=== PATIENT | female | born 1955 | race Two or more races ===

== ENCOUNTER 2021-07-12 11:35 | Outpatient (CLI) | payer MEDICARE ==
[2021-07-12 23:53] LABS: SARS-CoV-2 PCR by NAA Not Detected (NotDetected)
== END 2021-07-12 11:36 | disposition home or self-care (01) ==
LOC: LABBT 11:35
PROVIDERS: ATTEND Internal Medicine Gastroenterology
DX: C18.9 Malignant neoplasm of colon, unspecified (principal); K63.5 Polyp of colon; Z20.822 Contact with and (suspected) exposure to COVID-19
CPT/HCPCS: U0003; U0005

== ENCOUNTER → 2021-07-17 | Day surgery (SDC) | payer MEDICARE ==
[2021-07-10 14:28] VITALS: BMI 29.7
== END ==
LOC: SDC 06:41
PROVIDERS: ATTEND Internal Medicine Gastroenterology
DX: Z12.11 Encounter for screening for malignant neoplasm of colon (principal); I10 Essential (primary) hypertension; M06.9 Rheumatoid arthritis, unspecified; Z53.9 Procedure and treatment not carried out, unspecified reason; Z85.038 Personal history of other malignant neoplasm of large intestine; Z86.010 Personal history of colon polyps; Z79.899 Other long term (current) drug therapy; Z90.49 Acquired absence of other specified parts of digestive tract

== ENCOUNTER 2021-12-21 13:45 | Inpatient (IN) | payer MEDICARE ==
[2021-12-26] MEDS ORDERED: Acetaminophen 500 MG TAB ONE (10:58)
[2021-12-26] MEDS ORDERED: Ketorolac Tromethamine 30 MG/ML VIAL ONE (10:58)
[2021-12-26] MEDS ORDERED: Scopolamine 1.5 mg/72 hour Patch ONE (10:58)
[2021-12-26] MEDS ORDERED: Bupivacaine HCl 0.5%/Epinephrine 1:200,000/PF 30 ml Vial ONE (11:22)
[2021-12-26] MEDS ORDERED: Meropenem 1 GM in Sodium Chloride 0.9% 100 ML IVPB SCH (11:30)
[2021-12-26] MEDS ORDERED: Meropenem 2 GM in Sodium Chloride 0.9% 100 ML IVPB SCH (11:45)
[2021-12-26] MEDS ORDERED: Lidocaine 1% PF 5 ML VIAL ONE ×2 (12:22→13:05)
[2021-12-26] MEDS ORDERED: Fentanyl 100 MCG/2 ML VIAL ONE (12:22)
[2021-12-26] MEDS ORDERED: Midazolam HCl 2 mg/2 ml Vial ONE (12:22)
[2021-12-26] MEDS ORDERED: Rocuronium Bromide 10 MG/ML (10ML VIAL) ONE (13:05)
[2021-12-26] MEDS ORDERED: Dexamethasone 20 MG/5 ML VIAL ONE (13:05)
[2021-12-26] MEDS ORDERED: Calcium Chloride 1 GM/10 ML Abboject SYRINGE ONE (13:05)
[2021-12-26] MEDS ORDERED: Naloxone HCl 0.4 mg/ml Vial ONE (13:05)
[2021-12-26] MEDS ORDERED: Ondansetron PF 4 MG/2 ML Vial ONE (13:05)
[2021-12-26] MEDS ORDERED: PROPOFOL 200 MG/20 ML VIAL ONE (13:05)
[2021-12-26] MEDS ORDERED: Phenylephrine 10 MG/ML VIAL ONE (13:05)
[2021-12-26] MEDS ORDERED: Labetalol HCl 100 MG/20 ML VIAL ONE (13:05)
[2021-12-26] MEDS ORDERED: ePHEDrine 50 MG/ML VIAL ONE (13:05)
[2021-12-26] MEDS ORDERED: HYDROmorphone 2 MG/ML VIAL ONE (13:06)
[2021-12-26] MEDS ORDERED: SUGAMMADEX SODIUM 200 MG/2 ML VIAL ONE (13:06)
[2021-12-26] MEDS ORDERED: Propofol 500 MG/50 ML VIAL ONE (13:06)
[2021-12-26] MEDS ORDERED: ePHEDrine Sulfate 50 MG/10 ML VIAL ONE (16:13)
[2021-12-26] MEDS ORDERED: Albumin 5% 250 ML ONE (17:03)
[2021-12-26] MEDS ORDERED: fentaNYL Citrate/PF 100 MCG/2 ML SYRINGE ONE ×2 (17:27→18:41)
[2021-12-26] MEDS ORDERED: Morphine 4 MG/ML VIAL SLOW IVP PRN ×2 (18:36→19:01)
[2021-12-26] MEDS ORDERED: Morphine 2 MG/ML VIAL SLOW IVP PRN (18:36)
[2021-12-26] MEDS ORDERED: hydrALAZINE 20 MG/ML VIAL SLOW IVP PRN (18:36)
[2021-12-26] MEDS ORDERED: Promethazine HCl 25 MG/ML VIAL IVPB PRN (18:44)
[2021-12-26] MEDS ORDERED: Ondansetron HCl/PF 4 MG/2 ML Vial IVP PRN (18:44)
[2021-12-26] MEDS ORDERED: Ondansetron PF 4 MG/2 ML Vial IVP PRN (18:44)
[2021-12-26] MEDS ORDERED: Zolpidem Tartrate 5 MG TAB PO PRN (18:44)
[2021-12-26] MEDS ORDERED: diphenhydrAMINE 50 MG/ML VIAL IM PRN (18:44)
[2021-12-26] MEDS ORDERED: Promethazine HCl 25 MG/ML VIAL IM PRN ×2 (18:44)
[2021-12-26] MEDS ORDERED: fentaNYL Citrate/PF 2,000 MCG in Sodium Chloride 0.9% 60 ML IV PRN (18:44)
[2021-12-26] MEDS ORDERED: Naloxone HCl 0.4 mg/ml Vial IV PRN (18:44)
[2021-12-26] MEDS ORDERED: diphenhydrAMINE 50 MG/ML VIAL IVP PRN (18:44)
[2021-12-26] MEDS ORDERED: HYDROmorphone 2 MG/ML VIAL SLOW IVP PRN (18:44)
[2021-12-26] MEDS ORDERED: diphenhydrAMINE 25 MG CAP PO PRN (18:44)
[2021-12-26] MEDS ORDERED: Communication Order-Pharmacy FS SCH (18:45)
[2021-12-26] MEDS ORDERED: hydrALAZINE 20 MG/ML VIAL ONE (18:51)
[2021-12-26] MEDS ORDERED: cefOXitin 2 GM VIAL ONE (20:01)
[2021-12-26] MEDS ORDERED: Sodium Chloride 0.9% 100 ML ONE (20:02)
[2021-12-26] MEDS: cefOXitin 2 GM in Sodium Chloride 0.9% 100 ML IVPB SCH (20:04)
[2021-12-26] MEDS: 1/2 NS w/KCL 20 mEq 1,000 ML IV SCH (22:40)
[2021-12-26] MEDS: Albumin 25% 25 GM/100 ML BOT IVPB SCH (23:16)
[2021-12-26] MEDS: Famotidine/PF 20 mg/2ml Vial SLOW IVP SCH (23:17)
[2021-12-26] MEDS: Ketorolac Tromethamine 30 MG/ML VIAL IVP SCH (23:17)
[2021-12-26] MEDS: Enoxaparin Sodium 40 MG/0.4 ML SYRINGE SC SCH (23:17)
[2021-12-27] MEDS: 1/2 NS w/KCL 20 mEq 1,000 ML IV SCH ×4 (02:58→20:18)
[2021-12-27] MEDS: cefOXitin 2 GM in Sodium Chloride 0.9% 100 ML IVPB SCH (04:39)
[2021-12-27 05:25] LABS: #Lymphocytes 0.7 thou/uL (1.20-3.40); #Monocytes 0.6 thou/uL (0.11-0.59); %Eosinophils 0.1 % (0.0-10.0); %Monocytes 8.4 % (0.0-10.0); %Neutrophils 82.4 % (42.0-75.0); Hemoglobin 13.3 g/dL (12.0-16.0); Mean Corpuscular Hemoglobin 29.6 pg (27.0-31.0); Mean Corpuscular Volume 95.3 fL (78.0-98.0); Platelet Count 186 thou/uL (130-400); RBC Distribution Width 12.5 % (11.5-14.5); White Blood Cell (WBC) Count 7.2 thou/uL (4.8-10.8)
[2021-12-27 05:26] LABS: Anion Gap 17 mmol/L (10-20); BUN (Urea Nitrogen) 13 mg/dL (9.8-20.1); Calc. Creatinine Clearance 69 mL/min (70-130); Calcium 9.1 mg/dL (7.8-10.44); Carbon Dioxide 18 mmol/L (23-31); Chloride 113 mmol/L (98-107); Estimated GFR 55; Glucose 129 mg/dL (80-115); Potassium 4.4 mmol/L (3.5-5.1); Sodium 144 mmol/L (136-145)
[2021-12-27] MEDS: Ketorolac Tromethamine 30 MG/ML VIAL IVP SCH ×4 (06:28→23:41)
[2021-12-27] MEDS: Albumin 25% 25 GM/100 ML BOT IVPB SCH ×4 (06:28→23:41)
[2021-12-27] MEDS: Famotidine/PF 20 mg/2ml Vial SLOW IVP SCH ×2 (09:09→20:18)
[2021-12-27] MEDS: Enoxaparin Sodium 40 MG/0.4 ML SYRINGE SC SCH (20:18)
[2021-12-28] MEDS: 1/2 NS w/KCL 20 mEq 1,000 ML IV SCH ×2 (05:21→11:50)
[2021-12-28] MEDS: Ketorolac Tromethamine 30 MG/ML VIAL IVP SCH ×3 (05:21→18:16)
[2021-12-28 08:07] LABS: Anion Gap 18 mmol/L (10-20); BUN (Urea Nitrogen) 15 mg/dL (9.8-20.1); Calc. Creatinine Clearance 76 mL/min (70-130); Calcium 8.7 mg/dL (7.8-10.44); Carbon Dioxide 14 mmol/L (23-31); Chloride 111 mmol/L (98-107); Estimated GFR 62; Glucose 62 mg/dL (80-115); Potassium 5.1 mmol/L (3.5-5.1); Sodium 138 mmol/L (136-145)
[2021-12-28] MEDS: Lisinopril/Hydrochlorothiazide 20/25 mg Tablet PO SCH (09:55)
[2021-12-28] MEDS: Famotidine/PF 20 mg/2ml Vial SLOW IVP SCH ×2 (09:55→20:18)
[2021-12-28] MEDS ORDERED: Dextrose 5 %-0.45 % NaCl 1,000 ML IV SCH (12:30)
[2021-12-28] MEDS: Dextrose 5 %-0.45 % NaCl 1,000 ML IV SCH ×2 (13:19→20:18)
[2021-12-28 17:30] LABS: #Lymphocytes 1.8 thou/uL (1.20-3.40); #Monocytes 0.6 thou/uL (0.11-0.59); #Neutrophils 5.7 thou/uL (1.40-6.50); %Basophils 0.2 % (0.0-1.0); %Eosinophils 0.3 % (0.0-10.0); %Lymphocytes 21.7 % (21.0-51.0); %Neutrophils 70.7 % (42.0-75.0); Hemoglobin 10.4 g/dL (12.0-16.0); Mean Corpuscular HGB CONC 31.3 g/dL (32.0-36.0); Mean Corpuscular Hemoglobin 29.5 pg (27.0-31.0); Mean Corpuscular Volume 94.2 fL (78.0-98.0); Mean Platelet Volume 7.9 fL (7.4-10.4); Platelet Count 150 thou/uL (130-400); RBC Distribution Width 12.2 % (11.5-14.5); Red Blood Cell (RBC) Count 3.52 mill/uL (4.20-5.40); White Blood Cell (WBC) Count 8.1 thou/uL (4.8-10.8)
[2021-12-28] MEDS: Enoxaparin Sodium 40 MG/0.4 ML SYRINGE SC SCH (20:18)
[2021-12-29] MEDS: Ketorolac Tromethamine 30 MG/ML VIAL IVP SCH ×4 (00:17→19:29)
[2021-12-29] MEDS: Dextrose 5 %-0.45 % NaCl 1,000 ML IV SCH ×3 (05:39→21:00)
[2021-12-29 08:18] LABS: Anion Gap 16 mmol/L (10-20); BUN (Urea Nitrogen) 7 mg/dL (9.8-20.1); Calc. Creatinine Clearance 98 mL/min (70-130); Carbon Dioxide 20 mmol/L (23-31); Chloride 102 mmol/L (98-107); Estimated GFR 83; Glucose 108 mg/dL (80-115); Potassium 3.3 mmol/L (3.5-5.1); Sodium 135 mmol/L (136-145)
[2021-12-29] MEDS: Lisinopril/Hydrochlorothiazide 20/25 mg Tablet PO SCH (09:25)
[2021-12-29] MEDS: Famotidine/PF 20 mg/2ml Vial SLOW IVP SCH ×2 (09:26→21:00)
[2021-12-29] MEDS: Potassium Chloride 20 MEQ in Premix Bag 1 BAG IVPB SCH ×2 (12:44→17:39)
[2021-12-29] MEDS: Enoxaparin Sodium 40 MG/0.4 ML SYRINGE SC SCH (21:00)
[2021-12-30] MEDS: Ketorolac Tromethamine 30 MG/ML VIAL IVP SCH (00:04)
[2021-12-30] MEDS: Dextrose 5 %-0.45 % NaCl 1,000 ML IV SCH (05:25)
[2021-12-30 05:44] LABS: #Eosinphils 0.1 thou/uL (0.0-0.7); #Lymphocytes 0.9 thou/uL (1.20-3.40); #Monocytes 0.4 thou/uL (0.11-0.59); #Neutrophils 2.9 thou/uL (1.40-6.50); %Basophils 0.2 % (0.0-1.0); %Eosinophils 2.6 % (0.0-10.0); %Lymphocytes 20.5 % (21.0-51.0); %Monocytes 9.8 % (0.0-10.0); %Neutrophils 66.9 % (42.0-75.0); Hemoglobin 8.5 g/dL (12.0-16.0); Mean Corpuscular HGB CONC 34.1 g/dL (32.0-36.0); Mean Corpuscular Hemoglobin 30.7 pg (27.0-31.0); Mean Corpuscular Volume 90.1 fL (78.0-98.0); Mean Platelet Volume 7.5 fL (7.4-10.4); Platelet Count 173 thou/uL (130-400); RBC Distribution Width 11.9 % (11.5-14.5); Red Blood Cell (RBC) Count 2.75 mill/uL (4.20-5.40); White Blood Cell (WBC) Count 4.3 thou/uL (4.8-10.8)
[2021-12-30 05:56] LABS: Anion Gap 10 mmol/L (10-20); BUN (Urea Nitrogen) 8 mg/dL (9.8-20.1); Calc. Creatinine Clearance 96 mL/min (70-130); Calcium 8.4 mg/dL (7.8-10.44); Carbon Dioxide 25 mmol/L (23-31); Chloride 101 mmol/L (98-107); Estimated GFR 82; Glucose 152 mg/dL (80-115); Magnesium 1.6 mg/dL (1.6-2.6); Potassium 3.1 mmol/L (3.5-5.1); Sodium 133 mmol/L (136-145)
[2021-12-30 06:01] LABS: Phosphorus 1.9 mg/dL (2.3-4.7)
[2021-12-30] MEDS ORDERED: Morphine 2 MG/ML VIAL SLOW IVP PRN (08:55)
[2021-12-30] MEDS: Famotidine/PF 20 mg/2ml Vial SLOW IVP SCH ×2 (09:40→21:26)
[2021-12-30] MEDS: traMADol HCl 50 MG TAB PO SCH ×3 (09:47→21:25)
[2021-12-30] MEDS: Acetaminophen 325 MG TAB PO SCH ×3 (09:47→21:26)
[2021-12-30] MEDS: Lisinopril/Hydrochlorothiazide 20/25 mg Tablet PO SCH (09:58)
[2021-12-30] MEDS: Enoxaparin Sodium 40 MG/0.4 ML SYRINGE SC SCH (21:26)
[2021-12-31] MEDS: traMADol HCl 50 MG TAB PO SCH ×4 (03:22→21:41)
[2021-12-31] MEDS: Acetaminophen 325 MG TAB PO SCH ×2 (03:23→08:54)
[2021-12-31] MEDS ORDERED: Magnesium Sulfate 3 GM in Sodium Chloride 0.9% 100 ML IVPB SCH (07:15)
[2021-12-31] MEDS ORDERED: Potassium Phosphate 30 MMOL in Sodium Chloride 0.9% 250 ML 250 ML IVPB SCH (07:15)
[2021-12-31] MEDS ORDERED: Potassium Phosphate 30 MMOL, Magnesium Sulfate 3 GM in Sodium Chloride 0.9% 250 ML 250 ML IVPB SCH (07:15)
[2021-12-31] MEDS: Lisinopril/Hydrochlorothiazide 20/25 mg Tablet PO SCH (08:49)
[2021-12-31] MEDS: Famotidine/PF 20 mg/2ml Vial SLOW IVP SCH (08:50)
[2021-12-31 08:54] LABS: Anion Gap 16 mmol/L (10-20); BUN (Urea Nitrogen) 9 mg/dL (9.8-20.1); Calc. Creatinine Clearance 98 mL/min (70-130); Calcium 8.8 mg/dL (7.8-10.44); Carbon Dioxide 23 mmol/L (23-31); Chloride 101 mmol/L (98-107); Estimated GFR 83; Glucose 102 mg/dL (80-115); Magnesium 1.8 mg/dL (1.6-2.6); Phosphorus 3.2 mg/dL (2.3-4.7); Potassium 3.2 mmol/L (3.5-5.1); Sodium 137 mmol/L (136-145)
[2021-12-31] MEDS: Ondansetron PF 4 MG/2 ML Vial IVP PRN (08:54)
[2021-12-31] MEDS ORDERED: traMADol HCl 50 MG TAB PO PRN (12:06)
[2021-12-31] MEDS ORDERED: Acetaminophen 500 MG TAB PO PRN (12:06)
[2021-12-31] MEDS ORDERED: Ibuprofen 600 MG TAB PO PRN (12:06)
[2021-12-31] MEDS ORDERED: Ondansetron ODT 8 MG TAB SL PRN (12:08)
[2021-12-31] MEDS ORDERED: Ondansetron ORAL SOLN. 4 MG/5 ML UDCUP PO PRN (12:08)
[2021-12-31] MEDS ORDERED: Ondansetron ODT 4 MG TAB PO PRN (12:08)
[2021-12-31] MEDS ORDERED: Acetaminophen 500 MG TAB PO SCH (12:15)
[2021-12-31 14:17] LABS: Actual Bicarbonate (HCO3a) 19.9 mEq/L (22-28); Analyzer IN Cardio OR; Base Excess (BEa) -4.6 mEq/L (-2.0 to +3.0); CO2 Tension 35.3 mmHg (35.0-45.0); Calcium, Ionized (arterial) 1.32 mmol/L (1.12-1.30); Carboxyhemoglobin (COHb) 0.3 gm% (0.0-3.0); Hemoglobin (Hb) 12.8 g/dL (12.0-16.0); O2 Tension (PaO2), arterial 314.9 mmHg (> 80.0); Potassium - ABG Lab 3.09 mmol/L (3.70-5.30); Puncture Site Arterial Line; pH, Arterial 7.37 (7.35-7.45)
[2021-12-31] MEDS ORDERED: Promethazine HCl 25 MG/ML VIAL IM SCH (21:15)
[2021-12-31] MEDS: NS 0.9% w/ 20 MEQ KCL 1,000 ML IV SCH (21:41)
[2021-12-31] MEDS: Enoxaparin Sodium 40 MG/0.4 ML SYRINGE SC SCH (21:41)
[2022-01-01] MEDS: Ondansetron PF 4 MG/2 ML Vial IVP PRN ×3 (03:11→15:13)
[2022-01-01] MEDS: traMADol HCl 50 MG TAB PO SCH ×4 (05:11→21:38)
[2022-01-01] MEDS: NS 0.9% w/ 20 MEQ KCL 1,000 ML IV SCH ×2 (05:15→16:06)
[2022-01-01 06:16] LABS: Anion Gap 18 mmol/L (10-20); BUN (Urea Nitrogen) 12 mg/dL (9.8-20.1); Calc. Creatinine Clearance 90 mL/min (70-130); Carbon Dioxide 25 mmol/L (23-31); Chloride 99 mmol/L (98-107); Estimated GFR 75; Glucose 117 mg/dL (80-115); Magnesium 2.3 mg/dL (1.6-2.6); Phosphorus 4.1 mg/dL (2.3-4.7); Potassium 3.5 mmol/L (3.5-5.1); Sodium 138 mmol/L (136-145)
[2022-01-01] MEDS: Lisinopril/Hydrochlorothiazide 20/25 mg Tablet PO SCH (08:48)
[2022-01-01] MEDS: Enoxaparin Sodium 40 MG/0.4 ML SYRINGE SC SCH (21:38)
[2022-01-02] MEDS: traMADol HCl 50 MG TAB PO SCH ×4 (03:44→21:42)
[2022-01-02] MEDS: NS 0.9% w/ 20 MEQ KCL 1,000 ML IV SCH ×3 (03:45→21:42)
[2022-01-02 05:20] LABS: #Eosinphils 0.2 thou/uL (0.0-0.7); #Monocytes 0.6 thou/uL (0.11-0.59); #Neutrophils 3.6 thou/uL (1.40-6.50); %Basophils 0.2 % (0.0-1.0); %Eosinophils 2.8 % (0.0-10.0); %Lymphocytes 19.3 % (21.0-51.0); %Monocytes 11.3 % (0.0-10.0); %Neutrophils 66.4 % (42.0-75.0); Hemoglobin 8.4 g/dL (12.0-16.0); Mean Corpuscular HGB CONC 32.7 g/dL (32.0-36.0); Mean Corpuscular Hemoglobin 30.1 pg (27.0-31.0); Mean Corpuscular Volume 91.8 fL (78.0-98.0); Mean Platelet Volume 6.7 fL (7.4-10.4); Platelet Count 276 thou/uL (130-400); RBC Distribution Width 12.1 % (11.5-14.5); White Blood Cell (WBC) Count 5.4 thou/uL (4.8-10.8)
[2022-01-02 05:41] LABS: ALT (SGPT) 14 U/L (8-55); AST (SGOT) 15 U/L (5-34); Albumin 3.4 g/dL (3.4-4.8); Alkaline Phosphatase 72 U/L (40-110); Anion Gap 18 mmol/L (10-20); BUN (Urea Nitrogen) 13 mg/dL (9.8-20.1); Bilirubin, Total 0.5 mg/dL (0.2-1.2); Calc. Creatinine Clearance 89 mL/min (70-130); Calcium 8.7 mg/dL (7.8-10.44); Carbon Dioxide 24 mmol/L (23-31); Chloride 103 mmol/L (98-107); Estimated GFR 74; Globulin 3.4 g/dL (2.4-3.5); Glucose 87 mg/dL (80-115); Potassium 3.9 mmol/L (3.5-5.1); Protein, Total 6.8 g/dL (5.8-8.1); Sodium 141 mmol/L (136-145)
[2022-01-02] MEDS: Lisinopril/Hydrochlorothiazide 20/25 mg Tablet PO SCH (08:32)
[2022-01-02] MEDS: Enoxaparin Sodium 40 MG/0.4 ML SYRINGE SC SCH (21:42)
[2022-01-02 22:27] LABS: SARS-CoV-2 NAA Rapid Test Not Detected (NotDetected)
[2022-01-03] MEDS: traMADol HCl 50 MG TAB PO SCH ×4 (02:20→20:37)
[2022-01-03] MEDS: NS 0.9% w/ 20 MEQ KCL 1,000 ML IV SCH (05:54)
[2022-01-03] MEDS: Lisinopril/Hydrochlorothiazide 20/25 mg Tablet PO SCH (10:21)
[2022-01-03] MEDS: Enoxaparin Sodium 40 MG/0.4 ML SYRINGE SC SCH (20:36)
[2022-01-04] MEDS: traMADol HCl 50 MG TAB PO SCH ×2 (03:40→09:13)
[2022-01-04] MEDS: Lisinopril/Hydrochlorothiazide 20/25 mg Tablet PO SCH (09:13)
[2022-01-04] MEDS ORDERED: HYDROcodone/Acetaminophen 5/325 mg Tablet PO PRN (09:15)
[2022-01-04 11:19] VITALS: BP 153/87; TEMP 98
[2022-01-05] MEDS ORDERED: Lisinopril 20 MG TAB PO SCH (09:00)
== END 2022-01-04 15:21 | disposition swing bed (61) | DRG 330 ==
LOC: EDSTATUS 13:45 → EEVIPCON 12-26 10:40 → SURG A 12-26 10:40
PROVIDERS: ADMIT Specialist; ATTEND Specialist
PROC: 0DTG0ZZ Resection of Left Large Intestine, Open Approach (ICD-10-PCS; principal; 2021-12-26)
PROC: 0DB80ZZ Excision of Small Intestine, Open Approach (ICD-10-PCS; 2021-12-26)
PROC: 0DN80ZZ Release Small Intestine, Open Approach (ICD-10-PCS; 2021-12-26)
PROC: 0DBP0ZZ Excision of Rectum, Open Approach (ICD-10-PCS; 2021-12-26)
DX: D12.3 Benign neoplasm of transverse colon (principal); K91.71 Accidental puncture and laceration of a digestive system organ or structure during a digestive system procedure; N17.9 Acute kidney failure, unspecified; E86.0 Dehydration; Z20.822 Contact with and (suspected) exposure to COVID-19; I10 Essential (primary) hypertension; K66.0 Peritoneal adhesions (postprocedural) (postinfection); E87.6 Hypokalemia; E83.42 Hypomagnesemia; E83.39 Other disorders of phosphorus metabolism; D12.7 Benign neoplasm of rectosigmoid junction; Y83.8 Other surgical procedures as the cause of abnormal reaction of the patient, or of later complication, without mention of misadventure at the time of the procedure; Z28.21 Immunization not carried out because of patient refusal; Z90.49 Acquired absence of other specified parts of digestive tract; Z79.899 Other long term (current) drug therapy; Z98.890 Other specified postprocedural states; Z85.038 Personal history of other malignant neoplasm of large intestine
CPT/HCPCS: 36415; 36416; 74019; 80048; 80053; 82805; 83735; 84100; 85025; 88305; 88307; 88342; A4649; C1776; J0360; J0694; J1100; J1170; J1200; J1650; J1885; J2250; J2310; J2370; J2405; J2550; J2704; J3010; J3475; J3480; J3490; J7042; J7050; P9045; P9047; Q0162; S0028; U0002

== ENCOUNTER 2022-08-31 15:42 | Inpatient (IN) | payer MEDICARE ==
[2022-08-31] MEDS ORDERED: Morphine 2 MG/ML VIAL SLOW IVP PRN (18:41)
[2022-08-31] MEDS ORDERED: Ondansetron ODT 4 MG TAB PO PRN (18:41)
[2022-08-31] MEDS ORDERED: Acetaminophen 650 MG Suppository PR PRN (18:41)
[2022-08-31] MEDS ORDERED: Ondansetron PF 4 MG/2 ML Vial IVP PRN (18:41)
[2022-08-31 19:34] LABS: Hemoglobin 12.4 g/dL (12.0-16.0); Mean Corpuscular HGB CONC 35.1 g/dL (32.0-36.0); Mean Corpuscular Volume 91.2 fl (78.0-98.0); Mean Platelet Volume 7.9 fL (7.4-10.4); Platelet Count 146 10x3/uL (130-400); RBC Distribution Width 12.1 % (11.5-14.5); Red Blood Cell (RBC) Count 3.87 mill/uL (4.20-5.40); White Blood Cell (WBC) Count 4.4 10x3/uL (4.8-10.8)
[2022-08-31] MEDS: Lactated Ringer's 1,000 ML IV SCH (19:40)
[2022-08-31 19:52] LABS: Anion Gap 15 mmol/L (10-20); BUN (Urea Nitrogen) 10 mg/dL (9.8-20.1); Calc. Creatinine Clearance 0 mL/min (70-130); Calcium 8.7 mg/dL (7.8-10.44); Carbon Dioxide 18 mmol/L (23-31); Chloride 108 mmol/L (98-107); Estimated GFR 82; Glucose 85 mg/dL (80-115); Potassium 4.2 mmol/L (3.5-5.1); Sodium 137 mmol/L (136-145)
[2022-08-31 20:11] LABS: Lymphocytes 42 % (21-51); MDiff Complete? YES; Monocytes 6 % (0-10); Neutrophil 52 % (42-75)
[2022-08-31 20:17] VITALS: BMI 25.7
[2022-08-31] MEDS: Pantoprazole 40 MG VIAL IVP SCH (21:03)
[2022-09-01] MEDS: Lactated Ringer's 1,000 ML IV SCH (04:41)
[2022-09-01] MEDS: Pantoprazole 40 MG VIAL IVP SCH ×2 (08:18→20:48)
[2022-09-01] MEDS: Acetaminophen 325 MG TAB PO PRN ×2 (13:21→20:48)
[2022-09-01] MEDS ORDERED: MD-Gastroview 120 ML BOT ONE (16:05)
[2022-09-02] MEDS: Acetaminophen 325 MG TAB PO PRN (05:03)
[2022-09-02 07:32] LABS: Anion Gap 16 mmol/L (10-20); BUN (Urea Nitrogen) 15 mg/dL (9.8-20.1); Calc. Creatinine Clearance 54 mL/min (70-130); Calcium 9.3 mg/dL (7.8-10.44); Carbon Dioxide 16 mmol/L (23-31); Chloride 109 mmol/L (98-107); Estimated GFR 52; Glucose 101 mg/dL (80-115); Potassium 4.1 mmol/L (3.5-5.1); Sodium 137 mmol/L (136-145)
[2022-09-02 07:37] LABS: #Eosinphils 0.1 thou/uL (0.0-0.7); #Lymphocytes 1.2 thou/uL (1.20-3.40); #Monocytes 0.3 thou/uL (0.11-0.59); #Neutrophils 2.2 thou/uL (1.40-6.50); %Basophils 0.3 % (0.0-1.0); %Eosinophils 2.3 % (0.0-10.0); %Lymphocytes 31.9 % (21.0-51.0); %Monocytes 8.9 % (0.0-10.0); %Neutrophils 56.6 % (42.0-75.0); Hemoglobin 14.1 g/dL (12.0-16.0); Mean Corpuscular HGB CONC 31.8 g/dL (32.0-36.0); Mean Corpuscular Volume 91.2 fl (78.0-98.0); Platelet Count 186 10x3/uL (130-400); RBC Distribution Width 12.4 % (11.5-14.5); Red Blood Cell (RBC) Count 4.88 mill/uL (4.20-5.40); White Blood Cell (WBC) Count 3.8 10x3/uL (4.8-10.8)
[2022-09-02] MEDS: Pantoprazole 40 MG VIAL IVP SCH (08:52)
[2022-09-02] MEDS ORDERED: Lisinopril 20 MG TAB PO SCH (09:00)
[2022-09-02 11:34] VITALS: BP 117/75; TEMP 97.6
== END 2022-09-02 14:53 | disposition home or self-care (01) | DRG 389 ==
LOC: SURG B 17:37 → OBSVTOIN 18:41
PROVIDERS: ADMIT Family Medicine; ATTEND Family Medicine
DX: K56.600 Partial intestinal obstruction, unspecified as to cause (principal); N13.39 Other hydronephrosis; I10 Essential (primary) hypertension; Z85.038 Personal history of other malignant neoplasm of large intestine; Z92.21 Personal history of antineoplastic chemotherapy; Z92.3 Personal history of irradiation; Z91.040 Latex allergy status; Z79.899 Other long term (current) drug therapy; Z90.710 Acquired absence of both cervix and uterus; Z90.49 Acquired absence of other specified parts of digestive tract; Z86.19 Personal history of other infectious and parasitic diseases
CPT/HCPCS: 36415; 74250; 80048; 85025; C9113; J2272; J7120; Q0162; Q9963